=== PATIENT | male | born 1995 | race Caucasian/White ===

== ENCOUNTER 2022-10-02 20:11 | Emergency (ER) | payer MEDICAID ==
[~2022-10-02] VITALS: Ht 188 cm; Wt 83.6 kg
--- NOTE | 2022-10-02 20:45 | NUR ---
BIBFRIEND FROM HOME, PT CC OF HIGH BP 150/86mmHg, +GEORGE AND INSOMNIA FOR MOS, MOTHER GAVE PT CAPTOPRIL. PT AAOX4, IN NAD. PLACED COMFORTABLY IN BED, VITALS CHECKED.
--- NOTE | 2022-10-02 21:13 | NUR ---
EKG DONE AT BEDSIDE
--- NOTE | 2022-10-02 21:43 | NUR ---
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
--- NOTE | 2022-10-02 21:50 | NUR ---
URINE COLLECTED AT SENT TO LAB
--- NOTE | 2022-10-02 21:55 | NUR ---
BLOOD WORK COLLECTED AND SENT TO LAB
[2022-10-02 22:13] LABS: BILIRUBIN,URINE NEGATIVE (NEGATIVE); COLOR,URINE YELLOW (YELLOW); LEUKOCYTE ESTERASE ,URINE NEGATIVE (NEGATIVE); NITRITE, URINE NEGATIVE (NEGATIVE); PROTEIN,URINE NEGATIVE (NEGATIVE); UGLUCOSE NEGATIVE (NEGATIVE); UROBILINOGEN,URINE 0.2 EU/dL (0.2)
[2022-10-02 22:14] LABS: BASOPHILS % (AUTO) 0.3 % (0.0-2.0); EOSINOPHILS % (AUTO) 1.3 % (0.0-6.0); HEMATOCRIT 43 % (39-51); HEMOGLOBIN 14.2 g/dL (13.5-17.5); LYMPHOCYTES # (AUTO) 1.7 K/uL (0.8-4.8); LYMPHOCYTES % (AUTO) 26.6 % (20.0-44.0); MEAN CORPUSCULAR HGB CONC 33 g/dl (31.0-36.0); MEAN CORPUSCULAR VOLUME 88 fL (80-96); MONOCYTES # (AUTO) 0.5 K/uL (0.1-1.30); MONOCYTES % (AUTO) 7.4 % (2.0-12.0); NEUTROPHILS # (AUTO) 4.2 K/uL (1.8-8.9); NEUTROPHILS % (AUTO) 64.4 % (43.0-81.0); PLATELET COUNT (AUTO) 228 K/uL (150-450); RED BLOOD CELL COUNT(AUTO) 4.84 MIL/uL (4.5-6.0); WHITE BLOOD COUNT (AUTO) 6.5 K/uL (4.3-11.0)
[2022-10-02] MEDS ORDERED: LORAZEPAM 1 MG TABLET PO ONE (22:30)
[2022-10-02 22:43] LABS: ALBUMIN 4.3 g/dL (3.4-5.0); BILIRUBIN,TOTAL 0.5 mg/dL (0.2-1.0); CALCIUM, SERUM 9.3 mg/dL (8.5-10.1); MAGNESIUM 2.2 mg/dL (1.8-2.4); POTASSIUM 4.3 mmol/L (3.5-5.1); TOTAL PROTEIN, SERUM 7.2 g/dL (6.4-8.2)
[2022-10-02] MEDS ORDERED: LORAZEPAM 1 MG TABLET ONE (23:42)
[2022-10-02] MEDS ORDERED: KETOROLAC TROMETHAMINE 15 MG/ML VIAL ONE (23:42)
[2022-10-02] MEDS ORDERED: MELA5TAB PO (23:42)
[2022-10-03] MEDS ORDERED: KETOROLAC TROMETHAMINE INJ 30 MG/ML VIAL IV ONE
--- NOTE | 2022-10-03 | NUR ---
Patient discharged to home in stable condition. Written and verbal after care instructions given. Patient verbalizes understanding of instruction. IV removed. Catheter intact and site benign. Pressure and 4x4 applied to site. No bleeding noted.
[2022-10-03 00:01] VITALS: BP 138/62
== END 2022-10-03 00:02 | disposition home or self-care (01) ==
LOC: ER 20:15
DX: G47.00 Insomnia, unspecified (principal); R03.0 Elevated blood-pressure reading, without diagnosis of hypertension; F43.9 Reaction to severe stress, unspecified; Z79.899 Other long term (current) drug therapy
CPT/HCPCS: 99285; 96374; 71045; 93005; 85025; 83735; 81003; 36415; 80053; 84484; J1885